=== PATIENT | female | born 1950 | race Asian ===

== ENCOUNTER → 2016-08-07 | Outpatient (CLI) | payer OTHER ==
[2005-11-14 08:45] VITALS: TEMP 97
[~2016-08-07] MED LIST: ACCUPRIL 1010 MG/TAB PO; GLIPIZIDE10 M1 PO; INSULIN LANTIS; METFORMIN
== END ==
LOC: MC.RAD 15:20
DX: Z12.31 Encounter for screening mammogram for malignant neoplasm of breast (principal)

== ENCOUNTER → 2017-09-16 | Outpatient (CLI) | payer MEDICARE, OTHER ==
[2005-11-14 08:45] VITALS: TEMP 97
== END ==
LOC: MC.RAD 10:15
DX: Z12.31 Encounter for screening mammogram for malignant neoplasm of breast (principal)

== ENCOUNTER → 2018-09-17 | Outpatient (CLI) | payer MEDICARE, OTHER ==
[2005-11-14 08:45] VITALS: TEMP 97
== END ==
LOC: MC.RAD 13:48
DX: Z12.31 Encounter for screening mammogram for malignant neoplasm of breast (principal)